=== PATIENT | female | born 1950 | race African-American/Black ===

== ENCOUNTER 2017-08-25 21:49 | Emergency (ER) | payer OTHER ==
[~2017-08-25] VITALS: Ht 165.1 cm; Wt 75.3 kg
[2017-08-26] MEDS ORDERED: KETOROLAC 60MG/2ML VIAL IM ONE (00:45)
[2017-08-26 02:42] VITALS: BP 129/78
== END 2017-08-26 02:42 | disposition home or self-care (01) ==
LOC: ER 21:49
DX: S32.058A Other fracture of fifth lumbar vertebra, initial encounter for closed fracture (principal); S61.303A Unspecified open wound of left middle finger with damage to nail, initial encounter; S61.302A Unspecified open wound of right middle finger with damage to nail, initial encounter; Y08.89XA Assault by other specified means, initial encounter; Y93.89 Activity, other specified; Y92.018 Other place in single-family (private) house as the place of occurrence of the external cause
CPT/HCPCS: 72131; 96372; 99284; J1885; Z7610

== ENCOUNTER 2017-09-01 22:32 | Emergency (ER) | payer OTHER ==
[~2017-09-01] VITALS: Ht 162.6 cm; Wt 75.0 kg
[2017-09-01 22:39] VITALS: BP 126/75
== END 2017-09-01 23:45 | disposition home or self-care (01) ==
LOC: ER 22:32
DX: S20.02XS Contusion of left breast, sequela (principal); R05 Cough; Y08.89XS Assault by other specified means, sequela
CPT/HCPCS: 99283